=== PATIENT | male | born 1955 | race African-American/Black ===

== ENCOUNTER 2016-07-14 06:09 | Outpatient (CLI) | payer OTHER ==
[2016-07-14 06:36] LABS: Bilirubin Negative (Negative); Blood, Urine Negative (Negative); Glucose, Urine (Dipstick) Negative (Negative); Ketone, Urine Negative (Negative); Nitrite Negative (Negative); Protein, Urine (Dipstick) Negative (Neg-Trace)
[2016-07-14 06:46] LABS: #Basophils 0.1 thou/uL (0.0-0.2); #Eosinphils 0.4 thou/uL (0.0-0.7); #Lymphocytes 2.4 thou/uL (1.20-3.40); #Monocytes 0.5 thou/uL (0.11-0.59); #Neutrophils 1.8 thou/uL (1.40-6.50); %Basophils 1.7 % (0.0-1.0); %Eosinophils 6.9 % (0.0-10.0); %Monocytes 10.1 % (0.0-10.0); Hematocrit 48.2 % (42.0-52.0); Red Blood Cell (RBC) Count 5.59 mill/uL (4.70-6.10); White Blood Cell (WBC) Count 5.1 thou/uL (4.8-10.8)
[2016-07-14 07:02] LABS: ALT (SGPT) 26 U/L (0-55); AST (SGOT) 21 U/L (5-34); Alkaline Phosphatase 49 U/L (40-150); Anion Gap 15 mmol/L (10-20); BUN (Urea Nitrogen) 11 mg/dL (8.4-25.7); Bilirubin, Total 0.4 mg/dL (0.2-1.2); Calc. Creatinine Clearance 0 mL/min (70-130); Carbon Dioxide 29 mmol/L (23-31); Chloride 102 mmol/L (98-107); Estimated GFR-MDRD 87; Globulin 3.4 g/dL (2.4-3.5); Hemoglobin A1c 5.7 % (4.0-6.0); LDL Cholesterol, Calculated 131 mg/dL; Protein, Total 7.7 g/dL (5.8-8.1)
[2016-07-14 07:18] LABS: T4 5.9 ug/dL (4.87-11.72)
== END 2016-07-14 06:10 | disposition home or self-care (01) ==
LOC: BURLAB 06:09
PROVIDERS: ATTEND Internal Medicine
DX: E78.5 Hyperlipidemia, unspecified (principal); E03.9 Hypothyroidism, unspecified; D53.8 Other specified nutritional anemias; N41.9 Inflammatory disease of prostate, unspecified; R73.9 Hyperglycemia, unspecified; I10 Essential (primary) hypertension
CPT/HCPCS: 36415; 80053; 80061; 81003; 83036; 84436; 84443; 85025; G0103

== ENCOUNTER 2016-11-10 06:26 | Outpatient (CLI) | payer OTHER ==
[2016-11-10 06:44] LABS: Bilirubin Negative (Negative); Blood, Urine Negative (Negative); Clarity Clear (Clear); Glucose, Urine (Dipstick) Negative (Negative); Leukocyte Negative (Negative); Nitrite Negative (Negative); Protein, Urine (Dipstick) Negative (Neg-Trace); Urobilinogen 0.2 mg/dL (0.2-1.0); pH, Urine 5.5 (5.0-9.0)
[2016-11-10 06:55] LABS: #Basophils 0.1 thou/uL (0.0-0.2); #Eosinphils 0.4 thou/uL (0.0-0.7); #Lymphocytes 2.5 thou/uL (1.20-3.40); #Monocytes 0.5 thou/uL (0.11-0.59); #Neutrophils 2.3 thou/uL (1.40-6.50); %Basophils 1.3 % (0.0-1.0); %Eosinophils 6.4 % (0.0-10.0); %Lymphocytes 44.3 % (21.0-51.0); %Monocytes 8.2 % (0.0-10.0); %Neutrophils 39.8 % (42.0-75.0); Hemoglobin 16.1 g/dL (14.0-18.0); Mean Corpuscular HGB CONC 33.9 g/dL (32.0-36.0); Mean Corpuscular Hemoglobin 29.1 pg (27.0-31.0); Mean Corpuscular Volume 85.7 fl (80.0-94.0); Mean Platelet Volume 6.6 fL (7.4-10.4); Platelet Count 281 thou/uL (130-400); RBC Distribution Width 14.1 % (11.5-14.5); Red Blood Cell (RBC) Count 5.53 mill/uL (4.70-6.10); White Blood Cell (WBC) Count 5.7 thou/uL (4.8-10.8)
[2016-11-10 07:01] LABS: Specific Gravity, Urine 1.005 (1.005-1.030)
[2016-11-10 07:02] LABS: Bacteria/HPF None Seen HPF (None Seen); RBC/HPF None Seen HPF (0-3); Squamous Epithelial 0-3 HPF (0-3); WBC/HPF None Seen HPF (0-3)
[2016-11-10 07:08] LABS: ALT (SGPT) 38 U/L (8-55); AST (SGOT) 23 U/L (5-34); Albumin 4.5 g/dL (3.4-4.8); Alkaline Phosphatase 49 U/L (40-150); Anion Gap 19 mmol/L (10-20); BUN (Urea Nitrogen) 11 mg/dL (8.4-25.7); Bilirubin, Total 0.5 mg/dL (0.2-1.2); Calc. Creatinine Clearance 0 mL/min (70-130); Calcium 9.9 mg/dL (7.8-10.44); Carbon Dioxide 29 mmol/L (23-31); Cardiac Risk 3.7 (Less than 4.5); Chloride 97 mmol/L (98-107); Cholesterol 190 mg/dl (< 200 Desired); Estimated GFR-MDRD Greater than 90; Globulin 3.2 g/dL (2.4-3.5); Glucose 110 mg/dL (80-115); HDL Cholesterol 52 mg/dL (>60 Neg Risk); LDL Cholesterol, Calculated 116 mg/dL; Protein, Total 7.7 g/dL (5.8-8.1); Sodium 141 mmol/L (136-145); Triglycerides 110 mg/dL (Less than 150)
[2016-11-10 07:30] LABS: Vitamin D, 25 Hydroxy 37.4 ng/ml (> 30.0)
== END 2016-11-10 06:27 | disposition home or self-care (01) ==
LOC: BURLAB 06:26
PROVIDERS: ATTEND Internal Medicine
DX: E03.9 Hypothyroidism, unspecified (principal); E55.9 Vitamin D deficiency, unspecified; E78.5 Hyperlipidemia, unspecified; I10 Essential (primary) hypertension; Z79.899 Other long term (current) drug therapy
CPT/HCPCS: 36415; 80053; 80061; 81001; 82306; 84443; 85025

== ENCOUNTER 2018-05-03 08:18 | Emergency (ER) | payer OTHER ==
[2018-05-03 09:09] LABS: #Basophils 0.1 thou/uL (0.0-0.2); #Lymphocytes 2.8 thou/uL (1.20-3.40); #Monocytes 0.4 thou/uL (0.11-0.59); #Neutrophils 7.1 thou/uL (1.40-6.50); %Basophils 0.7 % (0.0-1.0); %Lymphocytes 26.7 % (21.0-51.0); %Monocytes 3.8 % (0.0-10.0); %Neutrophils 68.6 % (42.0-75.0); Hemoglobin 16.2 g/dL (14.0-18.0); Mean Corpuscular HGB CONC 34.7 g/dL (32.0-36.0); Mean Corpuscular Hemoglobin 28.8 pg (27.0-31.0); Mean Corpuscular Volume 83.1 fL (78.0-98.0); Mean Platelet Volume 7.3 fL (7.4-10.4); Platelet Count 356 thou/uL (130-400); RBC Distribution Width 12.9 % (11.5-14.5); Red Blood Cell (RBC) Count 5.62 mill/uL (4.70-6.10); White Blood Cell (WBC) Count 10.3 thou/uL (4.8-10.8)
[2018-05-03] MEDS ORDERED: Morphine 4 MG/ML VIAL ONE (09:21)
[2018-05-03] MEDS ORDERED: Ketorolac Tromethamine 30 MG/ML VIAL ONE (09:21)
[2018-05-03 09:27] LABS: Troponin I Less than 0.010 ng/mL (< 0.028)
[2018-05-03 09:30] LABS: ALT (SGPT) 37 U/L (8-55); AST (SGOT) 32 U/L (5-34); Albumin 4.3 g/dL (3.4-4.8); Alkaline Phosphatase 104 U/L (40-150); Anion Gap 25 mmol/L (10-20); BUN (Urea Nitrogen) 15 mg/dL (8.4-25.7); Bilirubin, Total 1.5 mg/dL (0.2-1.2); Calc. Creatinine Clearance 0 mL/min (70-130); Calcium 10.4 mg/dL (7.8-10.44); Carbon Dioxide 20 mmol/L (23-31); Chloride 96 mmol/L (98-107); Estimated GFR-MDRD 37; Globulin 4.1 g/dL (2.4-3.5); Glucose 165 mg/dL (80-115); Lipase 21 U/L (8-78); Potassium 3.9 mmol/L (3.5-5.1); Protein, Total 8.4 g/dL (5.8-8.1); Sodium 137 mmol/L (136-145)
[2018-05-03] MEDS ORDERED: Sodium Chloride 0.9% 100 ML ONE (09:57)
[2018-05-03] MEDS ORDERED: Piperacillin/Tazobactam 3.375 GM VIAL ONE (09:57)
[2018-05-03] MEDS ORDERED: Acetaminophen 500 MG TAB ONE (10:06)
[2018-05-03 10:38] LABS: Bilirubin Small (Negative); Blood, Urine Trace (Negative); Clarity Clear (Clear); Glucose, Urine (Dipstick) Negative (Negative); Leukocyte Negative (Negative); Nitrite Negative (Negative); Protein, Urine (Dipstick) 30 mg/dL (Neg-Trace); Specific Gravity, Urine 1.025 (1.005-1.030); pH, Urine 5.5 (5.0-9.0)
[2018-05-03 10:43] LABS: Bacteria/HPF 1+ HPF (None Seen); Hyaline Casts/LPF 0-3 HYALINE CAST LPF (0-3 Hyaline); Oval Fat Bodies/HPF Rare HPF (None Seen); RBC/HPF 0-3 HPF (0-3); Squamous Epithelial 0-3 HPF (0-3); WBC/HPF 0-3 HPF (0-3)
--- NOTE | 2018-05-03 15:20 | CT ---
CT ABDOMEN AND PELVIS: The major finding on this study is a dilated fluid-filled appendix that is about 1.3 cms wide. There is extensive inflammatory change around it and the base of the cecum. A small amount of fluid is pr esent in the vicinity. The findings are consistent with acute appendicitis with perforation and a shasta rounding inflammatory phlegmon. The lung bases show a 1.4 cm rounded nodular density in the right lower lobe posteriorly. This is at the margin of the lower part of the major fissure which has a small amount of fluid in it. At this po int I feel this needs further follow up to assess if this is small fluid collection versus an actual nodule. I would recommend following this up after the patient's acute abdominal issues are resolved. The liver, spleen, pancreas, adrenal glands, gallbladder, kidneys, and abdominal aorta showed no acut e findings within the limitations of a noncontrast study. No free air was seen in the upper abdomen. There is a small hiatal hernia. The major bowel findings have been listed above regarding the appendicitis with perforation. There is no evidence of bowel obstruction or large amounts of free air elsewhere. CT of the pelvis shows some mild thickening of the urinary bladder wall but this is probably reactive to the adjacent inflammatory change from the appendix. There is some free fluid in the rectovesical space. No bowel wall thickening was seen in the rectosigmoid region. Degenerative changes are present in the spine. IMPRESSION: 1. Acute appendicitis with perforation and surrounding inflammatory phlegmon. 2. Mild thickening of the urinary bladder wall, particularly the upper part, probably reactive to the appendicitis. 3. Small 1.4 cm nodular density in the right lower lobe peripherally. It is unclear if this is a nodu le or a collection of fluid at the margin of the fissure. This does need follow up, but it can wait u ntil he is through the acute phase, and in fact, it would be more accurate to do so. Findings discussed with Dr. Morataya at 1010 on 05-03-18. POS: HOME
== END 2018-05-03 10:36 | disposition short-term general hospital (02) ==
LOC: BURERS 08:18
DX: K35.32 Acute appendicitis with perforation, localized peritonitis, and gangrene, without abscess (principal); A41.9 Sepsis, unspecified organism; I10 Essential (primary) hypertension; F17.220 Nicotine dependence, chewing tobacco, uncomplicated; Z79.891 Long term (current) use of opiate analgesic; Z79.899 Other long term (current) drug therapy
CPT/HCPCS: 36415; 51702; 74176; 80053; 81003; 81015; 82553; 83605; 83690; 84484; 85025; 87040; 87086; 93005; 94760; 96361; 96365; 96374; 96375; J1885; J2270; J2543; J3370; J7050

== ENCOUNTER 2019-11-12 08:47 | Emergency (ER) | payer MEDICARE, OTHER ==
[2019-11-12 10:23] LABS: Hemoglobin 11.9 g/dL (14.0-18.0); Mean Corpuscular HGB CONC 31.1 g/dL (32.0-36.0); Mean Corpuscular Hemoglobin 26.4 pg (27.0-31.0); Mean Corpuscular Volume 85.1 fL (78.0-98.0); Mean Platelet Volume 8.3 fL (7.4-10.4); Platelet Count 230 thou/uL (130-400); RBC Distribution Width 17.8 % (11.5-14.5); White Blood Cell (WBC) Count 7.9 thou/uL (4.8-10.8)
[2019-11-12 10:36] LABS: Anisocytosis SLIGHT = 6-15 cells (100X) (0-5/hpf); Lymphocytes 17 % (21-51); MDiff Complete? YES; Monocytes 18 % (0-10); Neutrophil 65 % (42-75); Platelet Morphology Comment Appears Adequate
[2019-11-12 10:46] LABS: Albumin 2.6 g/dL (3.4-4.8); BUN (Urea Nitrogen) 8 mg/dL (8.4-25.7); Bilirubin, Total 2.9 mg/dL (0.2-1.2); Calc. Creatinine Clearance 0 mL/min (70-130); Calcium 10.7 mg/dL (7.8-10.44); Carbon Dioxide 22 mmol/L (23-31); Sodium 137 mmol/L (136-145)
[2019-11-12 11:13] LABS: ALT (SGPT) 123 U/L (8-55); AST (SGOT) 225 U/L (5-34); Alkaline Phosphatase 497 U/L (40-110); Anion Gap 14 mmol/L (10-20); Chloride 105 mmol/L (98-107); Estimated GFR-MDRD Greater than 90; Globulin 5.3 g/dL (2.4-3.5); Glucose 102 mg/dL (80-115); Potassium 4.2 mmol/L (3.5-5.1); Protein, Total 7.9 g/dL (5.8-8.1)
[2019-11-12] MEDS ORDERED: Iopamidol 370 76% 100 ML VIAL ONE (12:40)
[2019-11-12 13:03] LABS: Lactic Acid 2.4 mmol/L (0.5-2.2)
--- NOTE | 2019-11-12 14:10 | RAD ---
CHEST TWO VIEWS: 11/12/19 Comparison is made with a CT abdomen and pelvis of 09/23/18. The known mass in the right lower lobe has grown in size over time and now measures about 3.4 cm in d iameter. Streaking is seen around it that is presumed to be pneumonitis. There is a little more volum e loss on the right than there was previously. The left lung is clear. The heart is normal in size. E levation of the right hemidiaphragm was present before but is slightly greater today. IMPRESSION: Interval increase in size of right lower lobe mass with surrounding pneumonitis. See CT report to sri calderon. POS: HOME
--- NOTE | 2019-11-12 14:30 | CT ---
CT ANGIO OF THE CHEST AND CT ABDOMEN AND PELVIS WITH CONTRAST: DATE: 11/12/2019. FINDINGS: A CT angio of the chest was done and followed by a CT of the abdomen and pelvis with contrast. The jonas delgado has a known right lower lobe mass. Comparison is made with a prior PET CT of 11/14/2018. CT ANGIO OF THE CHEST: There is very good opacification of the pulmonary arteries. No internal defects were seen to suggest emboli. The aorta shows no sign of aneurysm or dissection. There is no pericardial effusion. The patient's right lower lobe mass has grown since the prior study. Today it measures about 3.4 cm in size. There is an associated right pleural effusion and some volume loss on the right side. Stre aking is seen in the lung around it suggest pneumonitis. Additionally, there is extensive mediastina l and right hilar adenopathy. Some of these nodes encase branches of the right pulmonary artery and significantly narrow them. Nevertheless, I could not see any defects within them to suggest emboli. The left lung was clear. CT ABDOMEN AND PELVIS: Comparison is made with the prior CT of 11/14/2018. The liver is now large and contains multiple mass es of varying sizes consistent with diffuse metastatic disease. The spleen and pancreas were unremar kable. No adrenal masses were appreciated. The kidneys and aorta showed no acute findings. The candi al arteries and mesenteric vessels fill normally. As this is mainly an arterial phase scan, I cannot assess the mesenteric veins for a thrombosis. CT of the pelvis shows no pelvic masses, but there is some free fluid in the rectovesical pouch. The re is some mild concentric thickening of the urinary bladder wall. Small fat-filled inguinal hernias are noted. There are multiple hypodense defects throughout the bones of the low thoracic and especially lumbar s pine. The findings suggest metastatic disease. Defects are also seen in the sacrum and bony pelvis. No vertebral fractures are seen. IMPRESSION: 1. No evidence of pulmonary embolism; however, adenopathy and mass encases some of the branches of t he right pulmonary artery and significantly narrows them. 2. Right lower lobe mass has increased in size over the last year. There is an associated right ple ural effusion and some surrounding pneumonitis. 3. Interval development of hepatomegaly with multiple hepatic masses consistent with diffuse metasta tic disease. 4. 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 5. Mediastinal adenopathy as noted above. Findings discussed with Dr. Collazo at 1346 on 11/12/2019. CODE CR POS: HOME
[2019-11-13 11:29] LABS: SARS-CoV-2 MS2 Positive; SARS-CoV-2 N Gene Negative; SARS-CoV-2 S Gene Negative; SARS-CoV-2 orf1ab Negative
== END 2019-11-12 16:10 | disposition short-term general hospital (02) ==
LOC: BURERS 08:47
DX: C34.91 Malignant neoplasm of unspecified part of right bronchus or lung (principal); C78.7 Secondary malignant neoplasm of liver and intrahepatic bile duct; C79.51 Secondary malignant neoplasm of bone; Z20.828 Contact with and (suspected) exposure to other viral communicable diseases; R79.89 Other specified abnormal findings of blood chemistry; I10 Essential (primary) hypertension; E78.5 Hyperlipidemia, unspecified; E78.00 Pure hypercholesterolemia, unspecified; F17.220 Nicotine dependence, chewing tobacco, uncomplicated; Z79.891 Long term (current) use of opiate analgesic; Z79.899 Other long term (current) drug therapy
CPT/HCPCS: 71046; 71275; 74177; 80053; 83605; 83880; 84484; 85025; 85379; 87635; 93005; Q9967; U0003